=== PATIENT | male | born 1970 | race Two or more races ===

== ENCOUNTER 2016-06-09 02:50 | Emergency (ER) | payer MEDICAID ==
[2016-06-09] MEDS ORDERED: cefTRIAXone 500 MG Vial IV ONE (04:45)
[2016-06-09] MEDS ORDERED: Sodium Chloride 0.9% 1,000 ML IV SCH (04:45)
[2016-06-09] MEDS ORDERED: Azithromycin 250 MG Tab PO ONE (04:48)
[2016-06-09] MEDS ORDERED: cefTRIAXone 1 GM in Sodium Chloride 0.9% 50 ML IV ONE (05:13)
[2016-06-09] MEDS: Nitroglycerin 0.4 MG Tab.SL SL PRN ×3 (05:17→05:33)
[2016-06-09] MEDS ORDERED: Aspirin 81 MG Tab.Chew PO ONE (05:44)
[2016-06-09] MEDS ORDERED: Morphine 4 MG/ML Syringe IVPUSH ONE (05:55)
[2016-06-09] MEDS ORDERED: Nitroglycerin/D5W 25 MG/250 ML BOTTLE IV SCH (06:15)
[2016-06-09] MEDS ORDERED: Lactated Ringers 1,000 ML IV SCH (06:45)
--- NOTE | 2016-06-09 06:50 | EDM.PDOC ---
ED HISTORY OF PRESENT ILLNESS - General Chief Complaint: Chest Pain Stated Complaint: CHEST PAIN/LT ARM PAIN Time Seen by Provider: 06/09/16 03:45 Source: Reports: Patient History Limitations: Reports: No limitations - History of Present Illness INITIAL COMMENTS - FREE TEXT/NARRATIVE: History of present illness: [45-year-old male is presenting with a history of coronary disease, small vessel disease, diagnosed by angiogram approximately 2 years ago in [facility]. He is a type II diabetic that runs hemoglobin A1c's around 12. This is in spite of being on 300 units of insulin per day. He does have angina on a regular basis and uses sublingual nitroglycerin regularly. This morning he awoke at about 2:30 as a result of chest pain radiating into his left arm and jaw associated with subjective sensation of tachycardia and a little nausea but no diaphoresis or shortness of breath. Of late he has had a minimally productive cough but no fevers or chills. Chest pain is pressure-like in nature 4/10 and arm pain and jaw pain are 7/10. After 3 sublingual nitroglycerin the chest pain resolved but the arm pain and jaw pain persisted.] Review of systems: As per history of present illness and below otherwise all systems reviewed and negative. Past medical history: As per history of present illness and as reviewed below otherwise noncontributory. Surgical history: As per history of present illness and as reviewed below otherwise noncontributory. Social history: No reported history of drug or alcohol abuse. Family history: As per history of present illness and as reviewed below otherwise noncontributory. Physical exam: HEENT: Atraumatic, normocephalic, pupils reactive, negative for conjunctival pallor or scleral icterus, mucous membranes moist, throat clear, neck supple, nontender, trachea midline. Lungs: Clear to auscultation, breath sounds equal bilaterally, chest nontender. Heart: S1S2, regular, negative for clicks, rubs, or JVD. Abdomen: Soft, nondistended, nontender. Negative for masses or hepatosplenomegaly. Negative for costovertebral tenderness. Pelvis: Stable nontender. Genitourinary: Deferred. Rectal: Deferred. Extremities: Atraumatic, negative for cords or calf pain. Neurovascular unremarkable. Neuro: Awake, alert, oriented. Cranial nerves II through XII unremarkable. Cerebellum unremarkable. Motor and sensory unremarkable throughout. Exam nonfocal. Diagnostics: [Patient has had a CBC complete metabolic panel 2 sets of troponins 3 EKGs chest x-ray d-dimer and C. reactive protein. The troponins were both negative and his EKG is showing nonspecific ST and T wave findings. He has no ST elevation. His chest x-ray is clear] Therapeutics: [Patient has received 3 sublingual nitroglycerin but resolved his chest pain but his arm pain and jaw pain have persisted. He is now on a nitroglycerin drip. He has received 4 baby aspirin chew and swallow. He has remained relatively hemodynamically stable with blood pressure dropping to approximately 90 to after the 3 nitroglycerin but now has returned to over 100. He has also received IV morphine 4 mg] Impression: [Chest pain suspicious for coronary syndrome in this patient with known coronary disease] Plan: [We have made arrangements for him to be transferred to Dr Jonathan Adam, hospitalist accepting. He will go by ground ALS with nitro drip going. Direct admission. ] Definitive disposition and diagnosis as appropriate pending reevaluation and review of above. - Related Data Allergies/ADRs: Allergies Allergy/AdvReac Type Severity Reaction Status Date / Time levofloxacin [From Levaquin] Allergy Itching Verified 06/09/16 03:09 cetirizine AdvReac Intermediate Drowsiness Verified 06/09/16 03:09 latex AdvReac Rash Verified 06/09/16 03:09 tape Allergy Rash Uncoded 06/09/16 03:09 Home Meds: Home Meds Aspirin [Halfprin] 81 mg PO DAILY 11/12/12 [History] Insulin Aspart [Novolog Flexpen] 30 units SQ QID 11/12/12 [History] Isosorbide Mononitrate [Imdur] 30 mg PO DAILY 11/12/12 [History] Metoprolol Tartrate [Lopressor] 25 mg PO BID 11/12/12 [History] Simvastatin [Zocor] 20 mg PO BID 11/12/12 [History] Tamsulosin HCl [Flomax] 0.4 mg PO DAILY 11/12/12 [History] Pregabalin [Lyrica] 300 mg PO TID 12/11/12 [History] Albuterol [Proventil Neb Soln] 1 ampule INH Q6H PRN 02/12/13 [History] Fluticasone Propionate [Flonase] 2 spray DAR BID 02/12/13 [History] Fluticasone/Salmeterol [Advair 250-50] 1 puff INH BID 02/12/13 [History] Ipratropium [place] 1 ampule INH Q6H PRN 02/12/13 [History] Montelukast [Singulair] 10 mg PO DAILY 02/12/13 [History] Nitroglycerin [Nitrostat] 0.4 mg SL ASDIRECTED PRN 02/12/13 [History] Tiotropium [Spiriva HandiHaler] 1 puff INH DAILY 02/12/13 [History] Cyclobenzaprine [Flexeril] 20 mg PO TID 07/12/13 [History] Lisinopril [Prinivil] 5 mg PO DAILY 07/12/13 [History] Omeprazole [Prilosec] 20 mg PO DAILY 10/25/13 [History] Citalopram [Citalopram HBr] 20 mg PO DAILY #30 tablet 06/27/14 [Rx] Melatonin/Pyridoxine HCl (B6) [Melatonin 10 mg Tablet] 1 each PO BEDTIME PRN # 30 tab.mphase 06/27/14 [Rx] Dulaglutide [Trulicity] 1 dose SQ WEEKLY 10/31/15 [History] Insulin Glargine,Hum.Rec.Anlog [Toujeo Solostar] 135 units SQ BEDTIME 10/31/15 [ History] LORazepam [LORazepam] 1 mg PO TID 12/21/15 [History] Insulin Glargine,Hum.Rec.Anlog [Toujeo Solostar] 50 units SUBCNJ DAILY 04/03/16 [History] valACYclovir HCl [valACYclovir] 1,000 mg PO BID PRN 04/03/16 [History] Past Medical History HEENT History: Reports: Allergic rhinitis, Impaired vision, Other (see below) Other HEENT History: states unsteady on feet Cardiovascular History: Reports: Arrhythmia, CAD, High cholesterol, Hypertension , SOB on exertion Respiratory History: Reports: Asthma, COPD, Pneumonia, recurrent, SOB Gastrointestinal History: Reports: Colon polyp, GERD Genitourinary History: Reports: Prostate disorder Musculoskeletal History: Reports: Back pain, chronic Other Musculoskeletal History: back surgery Neurological History: Reports: Neuropathy, diabetic Psychiatric History: Reports: Anxiety Endocrine/Metabolic History: Reports: Diabetes, type II, IDDM Oncologic (Cancer) History: Reports: Lung, Other (see below) Other Oncologic History: mesophileoma - Infectious Disease History Infectious Disease History: Reports: Chicken pox - Past Surgical History Cardiovascular Surgical History: Reports: Other (see below) Other Cardiovascular Surgeries/Procedures: angiogram GI Surgical History: Reports: Colonoscopy, Hernia repair/other Other Musculoskeletal Surgeries/Procedures:: back surgery Social & Family History - Tobacco Use Smoking Status *Q: Never Smoker Years of Tobacco use: 25 Used Tobacco, but Quit: No Month Tobacco Last Used: JUNE Second Hand Smoke Exposure: No - Caffeine Use Caffeine Use: Reports: Coffee - Alcohol Use Days Per Week of Alcohol Use: 0 Number of Drinks Per Day: 0 Total Drinks Per Week: 0 - Recreational Drug Use Recreational Drug Use: No Drug Use in Last 12 Months: No Recreational Drug Type: Reports: Marijuana/Hashish Recreational Drug Use Frequency: Not Used In Over 1 Year - Living Situation & Occupation Living situation: Reports: , with family (lives with his and children.) ED ROS GENERAL - Review of Systems Review Of Systems: ROS reveals no pertinent complaints other than HPI. ED EXAM, GENERAL - Physical Exam Exam: See Below Course - Vital Signs Last Recorded V/S: Last Vital Signs Temp 36.1 C 06/09/16 02:59 Pulse 87 06/09/16 06:25 Resp 16 06/09/16 06:25 BP 114/73 06/09/16 06:25 Pulse Ox 98 06/09/16 06:25 - Orders/Labs/Meds Orders: Active Orders 24 hr Category Date Time Status EKG Documentation Completion [RC] ASDIRECTED Care 06/09/16 04:47 Ordered EKG Documentation Completion [RC] ASDIRECTED Care 06/09/16 05:31 Active EKG Documentation Completion [RC] ASDIRECTED Care 06/09/16 06:20 Ordered Chest 2V [CR] Stat Exams 06/09/16 03:22 Taken CULTURE RESPIRATORY + SMEAR [RM] Stat Lab 06/09/16 05:09 Uncollected UA W/MICROSCOPIC [URIN] Stat Lab 06/09/16 06:12 Uncollected Lactated Ringers @ 150 MLS/HR(1,000ml) Med 06/09/16 06:45 Ordered Lactated Ringers [Ringers, Lactated] 1,000 ml IV ASDIRECTED Nitroglycerin 25 MG in D5W @ 10 MCG/MIN(250ml) Premix Med 06/09/16 06:15 Ordered Nitroglycerin/D5W [Nitroglycerin 25 MG/D5W 250 ML] 250 ml IV TITRATE Sodium Chloride 0.9% @ 150 MLS/HR (1000ml) Med 06/09/16 04:45 Ordered Sodium Chloride 0.9% [Normal Saline] 1,000 ml IV ASDIRECTED EKG 12 Lead [EK] Routine Ther 06/09/16 03:00 Ordered EKG 12 Lead [EK] Stat Ther 06/09/16 04:47 Ordered EKG 12 Lead [EK] Stat Ther 06/09/16 06:20 Ordered Medication Orders Sodium Chloride (Normal Saline) 1,000 mls @ 150 mls/hr IV ASDIRECTED EMMA Last Admin: 06/09/16 04:56 Dose: 150 mls/hr Nitroglycerin/Dextrose (Nitroglycerin 25 Mg/D5w 250 Ml) 25 mg in 250 mls @ 6 mls/hr IV TITRATE EMMA; 10 MCG/MIN PRN Reason: Protocol Last Admin: 06/09/16 06:22 Dose: 10 mcg/min, 6 mls/hr Lactated Ringer's (Ringers, Lactated) 1,000 mls @ 150 mls/hr IV ASDIRECTED EMMA Labs: Laboratory Tests 06/09/16 06/09/16 06/09/16 Range/Units 03:27 03:27 04:43 WBC 11.3 H (4.5-11.0) K/uL RBC 5.36 (4.30-5.90) M/uL Hgb 15.6 H (12.0-15.0) g/dL Hct 44.3 (40.0-54.0) % MCV 83 (80-98) fL MCH 29 (27-31) pg MCHC 35 (32-36) % Plt Count 203 (150-400) K/uL Neut % (Auto) 57 (36-66) % Lymph % (Auto) 35 (24-44) % [place] % (Auto) 6 (2-6) % Eos % (Auto) 2 (2-4) % Baso % (Auto) 0 (0-1) % D-Dimer, Quantitative < 100 (0.0-400.0) ng/mL Sodium 137 L (140-148) mmol/L Potassium 3.6 (3.6-5.2) mmol/L Chloride 102 (100-108) mmol/L Carbon Dioxide 29 (21-32) mmol/L Anion Gap 9.6 (5.0-14.0) mmol/L BUN 18 D (7-18) mg/dL Creatinine 1.0 (0.8-1.3) mg/dL Est Cr Clr Drug Dosing 93.95 mL/min Estimated GFR (MDRD) > 60 (>60) Glucose 353 H (74-106) mg/dL Calcium 8.5 (8.5-10.1) mg/dL Total Bilirubin 0.4 (0.2-1.0) mg/dL AST 17 (15-37) U/L ALT 42 (12-78) U/L Alkaline Phosphatase 99 (46-116) U/L Troponin I < 0.017 (0.000-0.056) ng/mL C-Reactive Protein (0.0-0.3) mg/dL Total Protein 7.0 (6.4-8.2) g/dL Albumin 3.5 (3.4-5.0) g/dL Globulin 3.5 (2.3-3.5) g/dL Albumin/Globulin Ratio 1.0 L (1.2-2.2) 06/09/16 06/09/16 Range/Units 05:48 05:48 WBC (4.5-11.0) K/uL RBC (4.30-5.90) M/uL Hgb (12.0-15.0) g/dL Hct (40.0-54.0) % MCV (80-98) fL MCH (27-31) pg MCHC (32-36) % Plt Count (150-400) K/uL Neut % (Auto) (36-66) % Lymph % (Auto) (24-44) % [place] % (Auto) (2-6) % Eos % (Auto) (2-4) % Baso % (Auto) (0-1) % D-Dimer, Quantitative (0.0-400.0) ng/mL Sodium (140-148) mmol/L Potassium (3.6-5.2) mmol/L Chloride (100-108) mmol/L Carbon Dioxide (21-32) mmol/L Anion Gap (5.0-14.0) mmol/L BUN (7-18) mg/dL Creatinine (0.8-1.3) mg/dL Est Cr Clr Drug Dosing mL/min Estimated GFR (MDRD) (>60) Glucose (74-106) mg/dL Calcium (8.5-10.1) mg/dL Total Bilirubin (0.2-1.0) mg/dL AST (15-37) U/L ALT (12-78) U/L Alkaline Phosphatase (46-116) U/L Troponin I < 0.017 (0.000-0.056) ng/mL C-Reactive Protein 1.43 H (0.0-0.3) mg/dL Total Protein (6.4-8.2) g/dL Albumin (3.4-5.0) g/dL Globulin (2.3-3.5) g/dL Albumin/Globulin Ratio (1.2-2.2) Meds: Medications Generic Name Dose Route Start Last Admin Trade Name Freq PRN Reason Stop Dose Admin Sodium Chloride 1,000 mls @ 150 mls/hr 06/09/16 04:45 06/09/16 04:56 Normal Saline IV 150 mls/hr ASDIRECTED EMMA Administration Nitroglycerin/Dextrose 25 mg in 250 mls @ 6 mls/hr 06/09/16 06:15 06/09/16 06 :41 Nitroglycerin 25 Mg/D5w 250 Ml IV 15 mcg/min TITRATE EMMA 9 mls/hr Protocol Titration 10 MCG/MIN Lactated Ringer's 1,000 mls @ 150 mls/hr 06/09/16 06:45 Ringers, Lactated IV ASDIRECTED EMMA Discontinued Medications Generic Name Dose Route Start Last Admin Trade Name Freq PRN Reason Stop Dose Admin Aspirin 324 mg 06/09/16 05:44 06/09/16 05:48 Aspirin PO 06/09/16 05:45 324 mg ONETIME ONE Administration Azithromycin 500 mg 06/09/16 04:48 06/09/16 05:06 Zithromax PO 06/09/16 04:49 500 mg ONETIME ONE Administration Ceftriaxone Sodium 1,000 mg 06/09/16 04:45 06/09/16 05:23 Rocephin IV 06/09/16 04:46 Not Given ONETIME ONE Ceftriaxone Sodium 1 gm/ 50 mls @ 100 mls/hr 06/09/16 05:13 06/09/16 05:21 Sodium Chloride IV 06/09/16 05:42 100 mls/hr ONETIME ONE Administration Morphine Sulfate 4 mg 06/09/16 05:55 06/09/16 06:09 Morphine IVPUSH 06/09/16 05:56 4 mg ONETIME ONE Administration Nitroglycerin 0.4 mg 06/09/16 04:45 06/09/16 05:33 Nitrostat SL 06/09/16 04:56 0.4 mg Q5M PRN Administration Chest Pain Departure - Departure Time of Disposition: 06:50 Disposition: DC/Tfer to Acute Hospital 02 Reason for Transfer *Q: Other Condition: fair Clinical Impression: Acute coronary syndrome Forms: ED Department Discharge - My Orders Last 24 Hours: My Active Orders 06/09/16 03:00 EKG 12 Lead [EK] Routine 06/09/16 03:22 Chest 2V [CR] Stat 06/09/16 04:45 Sodium Chloride 0.9% @ 150 MLS/HR (1000ml) Sodium Chloride 0.9% [Normal Saline] 1,000 ml IV ASDIRECTED 06/09/16 04:47 EKG Documentation Completion [RC] ASDIRECTED EKG 12 Lead [EK] Stat 06/09/16 05:09 CULTURE RESPIRATORY + SMEAR [RM] Stat 06/09/16 05:31 EKG Documentation Completion [RC] ASDIRECTED 06/09/16 06:12 UA W/MICROSCOPIC [URIN] Stat 06/09/16 06:15 Nitroglycerin 25 MG in D5W @ 10 MCG/MIN(250ml) Premix Nitroglycerin/D5W [ Nitroglycerin 25 MG/D5W 250 ML] 250 ml IV TITRATE 06/09/16 06:20 EKG Documentation Completion [RC] ASDIRECTED EKG 12 Lead [EK] Stat 06/09/16 06:45 Lactated Ringers @ 150 MLS/HR(1,000ml) Lactated Ringers [Ringers, Lactated] 1, 000 ml IV ASDIRECTED - Assessment/Plan Last 24 Hours: My Active Orders 06/09/16 03:00 EKG 12 Lead [EK] Routine 06/09/16 03:22 Chest 2V [CR] Stat 06/09/16 04:45 Sodium Chloride 0.9% @ 150 MLS/HR (1000ml) Sodium Chloride 0.9% [Normal Saline] 1,000 ml IV ASDIRECTED 06/09/16 04:47 EKG Documentation Completion [RC] ASDIRECTED EKG 12 Lead [EK] Stat 06/09/16 05:09 CULTURE RESPIRATORY + SMEAR [RM] Stat 06/09/16 05:31 EKG Documentation Completion [RC] ASDIRECTED 06/09/16 06:12 UA W/MICROSCOPIC [URIN] Stat 06/09/16 06:15 Nitroglycerin 25 MG in D5W @ 10 MCG/MIN(250ml) Premix Nitroglycerin/D5W [ Nitroglycerin 25 MG/D5W 250 ML] 250 ml IV TITRATE 06/09/16 06:20 EKG Documentation Completion [RC] ASDIRECTED EKG 12 Lead [EK] Stat 06/09/16 06:45 Lactated Ringers @ 150 MLS/HR(1,000ml) Lactated Ringers [Ringers, Lactated] 1, 000 ml IV ASDIRECTED
--- NOTE | 2016-06-09 08:51 | CR ---
Chest 2V HISTORY: cough, chest pain COMPARISON: 01/03/2016 FINDINGS: Lungs appear clear and normally aerated. Cardiomediastinal silhouette is within normal limits. No va scular redistribution or pleural fluid can be seen. Bony structures and soft tissues are unremarkabl e. IMPRESSION: No acute chest abnormality or significant interval change is identified.
[2016-06-09 11:44] VITALS: BP 135/84
== END 2016-06-09 12:05 ==
LOC: JP.ED 02:50
DX: I24.9 Acute ischemic heart disease, unspecified (principal); I10 Essential (primary) hypertension; I25.10 Atherosclerotic heart disease of native coronary artery without angina pectoris; E78.00 Pure hypercholesterolemia, unspecified; J44.9 Chronic obstructive pulmonary disease, unspecified; K21.9 Gastro-esophageal reflux disease without esophagitis; J45.909 Unspecified asthma, uncomplicated; F41.9 Anxiety disorder, unspecified; E11.9 Type 2 diabetes mellitus without complications; Z85.118 Personal history of other malignant neoplasm of bronchus and lung; Z79.4 Long term (current) use of insulin; Z79.82 Long term (current) use of aspirin; Z79.899 Other long term (current) drug therapy; Z88.1 Allergy status to other antibiotic agents; Z91.040 Latex allergy status; Z91.048 Other nonmedicinal substance allergy status; Z98.890 Other specified postprocedural states
CPT/HCPCS: 36415; 71020; 80053; 84484; 85025; 85379; 86140; 93005; 96361; 96365; 96375; 96376; 99285; A9270; J0696; J2270; J7040; J7050; J7120

== ENCOUNTER 2016-12-26 17:25 | Emergency (ER) | payer MEDICAID ==
[2016-12-26 17:55] VITALS: BP 129/73
[2016-12-26] MEDS ORDERED: Sulfamethoxazole/Trimethoprim 800-160 MG Tab PO ONE (18:21)
--- NOTE | 2016-12-26 18:26 | EDM.PDOC ---
ED HPI GENERAL MEDICAL PROBLEM - General Chief Complaint: General Stated Complaint: DIZZY Time Seen by Provider: 12/26/16 18:15 Source of Information: Reports: Patient History Limitations: Reports: No Limitations - History of Present Illness INITIAL COMMENTS - FREE TEXT/NARRATIVE: 46-year-old male who has been feeling dizzy and generalized malaise for the past 2 days, somewhat elevated glucose levels and he's been having drainage from his right groin. There is a small painful area in the groin, he has a history of a hernia in the area. No shortness of breath, no nausea or vomiting. He just doesn't feel well. No fevers or chills. Onset: Gradual (Over the past 48 hours) Location: Reports: Lower Extremity, Right Severity: Mild Associated Symptoms: Reports: Malaise, Other (Lightheaded, dizziness, having a small amount of trouble concentrating). Denies: Confusion, Fever/Chills Right Lower Pelvic Pain Score (Numeric/FACES): 8 - Related Data Allergies Allergy/AdvReac Type Severity Reaction Status Date / Time levofloxacin [From Levaquin] Allergy Itching Verified 06/09/16 03:09 cetirizine AdvReac Intermediate Drowsiness Verified 06/09/16 03:09 latex AdvReac Rash Verified 06/09/16 03:09 tape Allergy Rash Uncoded 06/09/16 03:09 Home Meds: Home Meds Aspirin [Halfprin] 81 mg PO DAILY 11/12/12 [History] Insulin Aspart [Novolog Flexpen] 30 units SQ QID 11/12/12 [History] Isosorbide Mononitrate [Imdur] 30 mg PO DAILY 11/12/12 [History] Metoprolol Tartrate [Lopressor] 25 mg PO BID 11/12/12 [History] Simvastatin [Zocor] 20 mg PO BID 11/12/12 [History] Tamsulosin HCl [Flomax] 0.4 mg PO DAILY 11/12/12 [History] Pregabalin [Lyrica] 300 mg PO TID 12/11/12 [History] Albuterol [Proventil Neb Soln] 1 ampule INH Q6H PRN 02/12/13 [History] Fluticasone Propionate [Flonase] 2 spray DAR BID 02/12/13 [History] Fluticasone/Salmeterol [Advair 250-50] 1 puff INH BID 02/12/13 [History] Ipratropium [place] 1 ampule INH Q6H PRN 02/12/13 [History] Montelukast [Singulair] 10 mg PO DAILY 02/12/13 [History] Nitroglycerin [Nitrostat] 0.4 mg SL ASDIRECTED PRN 02/12/13 [History] Tiotropium [Spiriva HandiHaler] 1 puff INH DAILY 02/12/13 [History] Cyclobenzaprine [Flexeril] 20 mg PO TID 07/12/13 [History] Lisinopril [Prinivil] 5 mg PO DAILY 07/12/13 [History] Omeprazole [Prilosec] 20 mg PO DAILY 10/25/13 [History] Citalopram [Citalopram HBr] 20 mg PO DAILY #30 tablet 06/27/14 [Rx] Melatonin/Pyridoxine HCl (B6) [Melatonin 10 mg Tablet] 1 each PO BEDTIME PRN # 30 tab.mphase 06/27/14 [Rx] Dulaglutide [Trulicity] 1 dose SQ WEEKLY 10/31/15 [History] Insulin Glargine,Hum.Rec.Anlog [Toujeo Solostar] 135 units SQ BEDTIME 10/31/15 [ History] LORazepam [LORazepam] 1 mg PO TID 12/21/15 [History] Insulin Glargine,Hum.Rec.Anlog [Toujeo Solostar] 50 units SUBCNJ DAILY 04/03/16 [History] valACYclovir HCl [valACYclovir] 1,000 mg PO BID PRN 04/03/16 [History] Past Medical History HEENT History: Reports: Allergic Rhinitis, Impaired Vision, Other (See Below) Other HEENT History: states unsteady on feet Cardiovascular History: Reports: Arrhythmia, CAD, High Cholesterol, Hypertension , SOB on Exertion Respiratory History: Reports: Asthma, COPD, Pneumonia, Recurrent, SOB Gastrointestinal History: Reports: Colon Polyp, GERD Genitourinary History: Reports: Prostate Disorder Musculoskeletal History: Reports: Back Pain, Chronic Other Musculoskeletal History: back surgery Neurological History: Reports: Neuropathy, Diabetic Psychiatric History: Reports: Anxiety Endocrine/Metabolic History: Reports: Diabetes, Type II, IDDM Oncologic (Cancer) History: Reports: Lung, Other (See Below) Other Oncologic History: mesophileoma - Infectious Disease History Infectious Disease History: Reports: Chicken Pox - Past Surgical History Cardiovascular Surgical History: Reports: Other (See Below) GI Surgical History: Reports: Colonoscopy, Hernia Repair/Other Social & Family History - Tobacco Use Smoking Status *Q: Current Some Day Smoker Years of Tobacco use: 20 Packs/Tins Daily: 0.5 Used Tobacco, but Quit: No Month Tobacco Last Used: JUNE Second Hand Smoke Exposure: No - Caffeine Use Caffeine Use: Reports: None - Alcohol Use Days Per Week of Alcohol Use: 0 Number of Drinks Per Day: 0 Total Drinks Per Week: 0 - Recreational Drug Use Recreational Drug Use: No Drug Use in Last 12 Months: No Recreational Drug Type: Reports: Marijuana/Hashish Recreational Drug Use Frequency: Not Used In Over 1 Year - Living Situation & Occupation Living situation: Reports: , with Family ED ROS GENERAL - Review of Systems Review Of Systems: See Below Constitutional: Reports: Malaise. Denies: Fever, Chills HEENT: Reports: No Symptoms Respiratory: Denies: Shortness of Breath, Cough Cardiovascular: Denies: Chest Pain GI/Abdominal: Denies: Abdominal Pain, Nausea, Vomiting : Denies: Dysuria Skin: Reports: Other (Swelling, redness and tenderness in the right groin with drainage) Neurological: Reports: Dizziness Psychiatric: Reports: No Symptoms ED EXAM, GENERAL - Physical Exam Exam: See Below Exam Limited By: No Limitations General Appearance: Alert, No Apparent Distress Respiratory/Chest: No Respiratory Distress, Lungs Clear Cardiovascular: Regular Rate, Rhythm. No: Tachycardia GI/Abdominal: Non-Tender Extremities: Other (He is a small slightly fluctuant subcutaneous infection, erythematous and somewhat tender to palpation approximately 1-2 cm across with slightly purulent drainage) Psychiatric: Normal Affect, Normal Mood Course - Vital Signs Last Recorded V/S: Last Vital Signs Temp 97.9 F 12/26/16 17:55 Pulse 95 12/26/16 17:55 Resp 18 12/26/16 17:55 BP 129/73 12/26/16 17:55 Pulse Ox 95 12/26/16 17:55 - Orders/Labs/Meds Orders: Active Orders 24 hr Category Date Time Status CULTURE WOUND + SMEAR [RM] Stat Lab 12/26/16 18:25 Results Labs: Laboratory Tests 12/26/16 12/26/16 Range/Units 18:32 18:32 WBC 5.7 (4.5-11.0) K/uL RBC 5.23 (4.30-5.90) M/uL Hgb 15.6 H (12.0-15.0) g/dL Hct 44.6 (40.0-54.0) % MCV 85 (80-98) fL MCH 30 (27-31) pg MCHC 35 (32-36) % Plt Count 161 (150-400) K/uL Neut % (Auto) 59 (36-66) % Lymph % (Auto) 28 (24-44) % Gregory % (Auto) 11 H (2-6) % Eos % (Auto) 3 (2-4) % Baso % (Auto) 0 (0-1) % Sodium 135 L (140-148) mmol/L Potassium 4.1 (3.6-5.2) mmol/L Chloride 102 (100-108) mmol/L Carbon Dioxide 26 (21-32) mmol/L Anion Gap 11.1 (5.0-14.0) mmol/L BUN 16 (7-18) mg/dL Creatinine 1.0 (0.8-1.3) mg/dL Est Cr Clr Drug Dosing 93.28 mL/min Estimated GFR (MDRD) > 60 (>60) Glucose 344 H (74-106) mg/dL Calcium 8.6 (8.5-10.1) mg/dL Meds: Medications Discontinued Medications Generic Name Dose Route Start Last Admin Trade Name Stephenq PRN Reason Stop Dose Admin Trimethoprim/Sulfamethoxazole 1 tab 12/26/16 18:21 12/26/16 18:29 Septra Ds PO 12/26/16 18:22 1 tab ONETIME ONE Administration - Re-Assessments/Exams Free Text/Narrative Re-Assessment/Exam: 12/26/16 18:26 The inflamed area was sterilized with alcohol, and applying a small amount of pressure some discharge was expelled and cultured. He was very concerned about his blood, a CBC and BMP were obtained. He was given one oral dose of Bactrim DS. 12/26/16 19:01 Patient's glucose is 344. The other labs were reassuring, white count was normal. He'll be continued on Bactrim DS twice a day for at least the next 7 days and encouraged to use warm compresses to the area. He can return if worsening and we will contact him with culture results. Departure - Departure Time of Disposition: 19:12 Disposition: Home, Self-Care 01 Condition: Good Clinical Impression: Cutaneous abscess of groin - Discharge Information Instructions: Abscess, [id number] Referrals: PCP,None [Primary Care Provider] - Forms: ED Department Discharge Care Plan Goals: Take antibiotic twice daily as prescribed for at least 7 days, warm moist compresses to the area should help. Return anytime if worsening or consider recheck in 3-4 days if not improving satisfactorily. - My Orders Last 24 Hours: My Active Orders 12/26/16 18:25 CULTURE WOUND + SMEAR [RM] Stat - Assessment/Plan Last 24 Hours: My Active Orders 12/26/16 18:25 CULTURE WOUND + SMEAR [RM] Stat
== END 2016-12-26 19:13 | disposition home or self-care (01) ==
LOC: JP.ED 17:25
DX: L02.214 Cutaneous abscess of groin (principal); F17.210 Nicotine dependence, cigarettes, uncomplicated; E11.9 Type 2 diabetes mellitus without complications; I10 Essential (primary) hypertension; J44.9 Chronic obstructive pulmonary disease, unspecified; Z79.4 Long term (current) use of insulin; Z79.899 Other long term (current) drug therapy; Z79.82 Long term (current) use of aspirin; Z88.1 Allergy status to other antibiotic agents; Z91.040 Latex allergy status; Z91.09 Other allergy status, other than to drugs and biological substances; Z88.8 Allergy status to other drugs, medicaments and biological substances
CPT/HCPCS: 36415; 80048; 85025; 87070; 87077; 87205; 99284; A9270

== ENCOUNTER 2017-02-28 13:23 | Emergency (ER) | payer MEDICAID ==
[2017-02-28] MEDS ORDERED: Lactated Ringers 1,000 ML IV ONE (14:53)
[2017-02-28] MEDS ORDERED: Ketorolac 30 MG/ML SDV IVPUSH ONE (14:54)
[2017-02-28] MEDS ORDERED: Ondansetron 4 MG Tab.DIS PO ONE (14:55)
--- NOTE | 2017-02-28 15:02 | EDM.PDOC ---
ED HPI GENERAL MEDICAL PROBLEM - General Chief Complaint: General Stated Complaint: BOTH SHOULDERS ARE PAINFUL Time Seen by Provider: 02/28/17 14:45 Source of Information: Reports: Patient, Old Records, RN History Limitations: Reports: No Limitations - History of Present Illness INITIAL COMMENTS - FREE TEXT/NARRATIVE: 46 yo male states he fell down some icy stairs about 3 days ago and now has worse pain today than yesterday. Has not been to the clinic since the fall. Complains of chest pain, bilateral shoulder pain, low back pain, and nausea/ vomiting. No fever. Has a hx of CAD. Has a hx of low back surgery. Onset: Sudden Onset Date: 02/25/17 Duration: Day(s):, Getting Worse Location: Reports: Chest, Back, Upper Extremity, Left, Upper Extremity, Right Quality: Reports: Ache Severity: Moderate Improves with: Reports: Rest Worsens with: Reports: Movement Context: Reports: Other (multiple chronic medical conditions.) Associated Symptoms: Reports: Chest Pain, Nausea/Vomiting. 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: Other (see below) (none) Lower Back Pain Score (Numeric/FACES): 8 - Related Data Allergies Allergy/AdvReac Type Severity Reaction Status Date / Time levofloxacin [From Levaquin] Allergy Itching Verified 06/09/16 03:09 cetirizine AdvReac Intermediate Drowsiness Verified 06/09/16 03:09 latex AdvReac Rash Verified 06/09/16 03:09 tape Allergy Rash Uncoded 06/09/16 03:09 Home Meds: Home Meds Aspirin [Halfprin] 81 mg PO DAILY 11/12/12 [History] Insulin Aspart [Novolog Flexpen] 30 units SQ QID 11/12/12 [History] Isosorbide Mononitrate [Imdur] 30 mg PO DAILY 11/12/12 [History] Metoprolol Tartrate [Lopressor] 25 mg PO BID 11/12/12 [History] Simvastatin [Zocor] 20 mg PO BID 11/12/12 [History] Tamsulosin HCl [Flomax] 0.4 mg PO DAILY 11/12/12 [History] Pregabalin [Lyrica] 300 mg PO TID 12/11/12 [History] Albuterol [Proventil Neb Soln] 1 ampule INH Q6H PRN 02/12/13 [History] Fluticasone Propionate [Flonase] 2 spray DAR BID 02/12/13 [History] Fluticasone/Salmeterol [Advair 250-50] 1 puff INH BID 02/12/13 [History] Ipratropium [place] 1 ampule INH Q6H PRN 02/12/13 [History] Montelukast [Singulair] 10 mg PO DAILY 02/12/13 [History] Nitroglycerin [Nitrostat] 0.4 mg SL ASDIRECTED PRN 02/12/13 [History] Tiotropium [Spiriva HandiHaler] 1 puff INH DAILY 02/12/13 [History] Cyclobenzaprine [Flexeril] 20 mg PO TID 07/12/13 [History] Lisinopril [Prinivil] 5 mg PO DAILY 07/12/13 [History] Omeprazole [Prilosec] 20 mg PO DAILY 10/25/13 [History] Citalopram [Citalopram HBr] 20 mg PO DAILY #30 tablet 06/27/14 [Rx] Melatonin/Pyridoxine HCl (B6) [Melatonin 10 mg Tablet] 1 each PO BEDTIME PRN # 30 tab.mphase 06/27/14 [Rx] Dulaglutide [Trulicity] 1 dose SQ WEEKLY 10/31/15 [History] Insulin Glargine,Hum.Rec.Anlog [Toujeo Solostar] 135 units SQ BEDTIME 10/31/15 [ History] LORazepam [LORazepam] 1 mg PO TID 12/21/15 [History] Insulin Glargine,Hum.Rec.Anlog [Toujeo Solostar] 50 units SUBCNJ DAILY 04/03/16 [History] valACYclovir HCl [valACYclovir] 1,000 mg PO BID PRN 04/03/16 [History] Ondansetron [Zofran ODT] 4 mg PO Q6H PRN #7 tab.dis 02/28/17 [Rx] Past Medical History HEENT History: Reports: Allergic Rhinitis, Impaired Vision, Other (See Below) Other HEENT History: states unsteady on feet Cardiovascular History: Reports: Arrhythmia, CAD, High Cholesterol, Hypertension , SOB on Exertion Respiratory History: Reports: Asthma, COPD, Pneumonia, Recurrent, SOB Gastrointestinal History: Reports: Colon Polyp, GERD Genitourinary History: Reports: Prostate Disorder Musculoskeletal History: Reports: Back Pain, Chronic Other Musculoskeletal History: back surgery Neurological History: Reports: Neuropathy, Diabetic Psychiatric History: Reports: Anxiety Endocrine/Metabolic History: Reports: Diabetes, Type II, IDDM Oncologic (Cancer) History: Reports: Lung, Other (See Below) Other Oncologic History: mesophileoma - Infectious Disease History Infectious Disease History: Reports: Chicken Pox - Past Surgical History Cardiovascular Surgical History: Reports: Other (See Below) GI Surgical History: Reports: Colonoscopy, Hernia Repair/Other Social & Family History - Tobacco Use Smoking Status *Q: Current Every Day Smoker Years of Tobacco use: 20 Packs/Tins Daily: 0.5 Used Tobacco, but Quit: No Month Tobacco Last Used: JUNE Second Hand Smoke Exposure: No - Caffeine Use Caffeine Use: Reports: None - Alcohol Use Days Per Week of Alcohol Use: 0 Number of Drinks Per Day: 0 Total Drinks Per Week: 0 - Recreational Drug Use Recreational Drug Use: No Drug Use in Last 12 Months: No Recreational Drug Type: Reports: Marijuana/Hashish Recreational Drug Use Frequency: Not Used In Over 1 Year - Living Situation & Occupation Living situation: Reports: , with Family ED ROS GENERAL - Review of Systems Review Of Systems: See Below Constitutional: Reports: No Symptoms HEENT: Reports: No Symptoms Respiratory: Reports: No Symptoms Cardiovascular: Reports: No Symptoms Endocrine: Reports: No Symptoms GI/Abdominal: Reports: No Symptoms : Reports: No Symptoms Musculoskeletal: Reports: Shoulder Pain (Bilateral A/C tenderness without deformity on palpation or visualization. ), Back Pain (No spasms. No redness or bruising. ) Skin: Reports: No Symptoms Neurological: Reports: No Symptoms Psychiatric: Reports: No Symptoms ED EXAM, GENERAL - Physical Exam Exam: See Below Exam Limited By: No Limitations General Appearance: Alert, WD/WN, No Apparent Distress Eye Exam: Bilateral Eye: Normal Inspection Ears: Normal External Exam, Normal Canal, Hearing Grossly Normal, Normal TMs Ear Exam: Bilateral Ear: Auricle Normal, Canal Normal, TM normal Nose: Normal Inspection, Normal Mucosa, No Blood Throat/Mouth: Normal Inspection, Normal Lips, Normal Oropharynx, Normal Voice, No Airway Compromise Head: Atraumatic, Normocephalic Neck: Normal Inspection, Supple, Non-Tender Respiratory/Chest: No Respiratory Distress, Lungs Clear, Normal Breath Sounds, No Accessory Muscle Use Cardiovascular: Regular Rate, Rhythm, No Edema, Tachycardia (mild tachycardia) GI/Abdominal: Normal Bowel Sounds, Soft, Non-Tender, No Distention Back Exam: Normal Inspection, Other (mild diffuse low back pain, old surgical scar lumbar region. ). No: CVA Tenderness (R), CVA Tenderness (L) Extremities: Normal Inspection, Non-Tender, No Pedal Edema, Limited Range of Motion (of shoulders only) Neurological: Alert, Oriented, CN II-XII Intact, Normal Cognition, No Motor/ Sensory Deficits Psychiatric: Normal Affect, Normal Mood Skin Exam: Warm, Dry, Intact, Normal Color, No Rash Lymphatic: No Adenopathy Course - Vital Signs Last Recorded V/S: Last Vital Signs Temp 37.1 C 02/28/17 14:30 Pulse 94 02/28/17 15:34 Resp 16 02/28/17 15:34 BP 126/87 02/28/17 15:34 Pulse Ox 98 02/28/17 15:34 - Orders/Labs/Meds Orders: Active Orders 24 hr Category Date Time Status Lumbar Spine 2 or 3V [CR] Stat Exams 02/28/17 14:55 Taken Shoulder Comp Bi [CR] Stat Exams 02/28/17 14:56 Taken Lactated Ringers [Ringers, Lactated] 1,000 ml Med 02/28/17 14:53 Active IV BOLUS Medication Orders Lactated Ringer's (Ringers, Lactated) 1,000 mls @ 1,000 mls/hr IV BOLUS ONE Stop: 02/28/17 15:52 Last Admin: 02/28/17 15:28 Dose: 1,000 mls/hr Labs: Laboratory Tests 02/28/17 02/28/17 02/28/17 Range/Units 14:55 14:55 15:15 WBC 10.1 (4.5-11.0) K/uL RBC 5.53 (4.30-5.90) M/uL Hgb 16.2 H (12.0-15.0) g/dL Hct 46.8 (40.0-54.0) % MCV 85 (80-98) fL MCH 29 (27-31) pg MCHC 35 (32-36) % Plt Count 168 (150-400) K/uL Sodium 135 L (140-148) mmol/L Potassium 3.6 (3.6-5.2) mmol/L Chloride 100 (100-108) mmol/L Carbon Dioxide 28 (21-32) mmol/L Anion Gap 10.6 (5.0-14.0) mmol/L BUN 16 (7-18) mg/dL Creatinine 0.9 (0.8-1.3) mg/dL Est Cr Clr Drug Dosing 103.65 mL/min Estimated GFR (MDRD) > 60 (>60) Glucose 133 H (74-106) mg/dL Calcium 8.3 L (8.5-10.1) mg/dL Troponin I < 0.017 (0.000-0.056) ng/mL Urine Color [place] Urine Appearance Clear Urine pH 6.0 (4.5-8.0) Ur Specific [place] 1.015 (1.008-1.030) Urine Protein Trace (NEGATIVE) mg/dL Urine Glucose (UA) Normal (NEGATIVE) mg/dL Urine Ketones Negative (NEGATIVE) mg/dL Urine Occult Blood Negative (NEGATIVE) Urine Nitrite Negative (NEGAITVE) Urine Bilirubin Small (NEGATIVE) Urine Urobilinogen 1 (NORMAL) mg/dL Ur Leukocyte Esterase Negative (NEGATIVE) Urine RBC 0-5 (0-5) Urine WBC 0-5 (0-5) Ur Epithelial Cells Rare Amorphous Sediment Few Urine Bacteria Rare Urine Mucus Few Meds: Medications Generic Name Dose Route Start Last Admin Trade Name Freq PRN Reason Stop Dose Admin Lactated Ringer's 1,000 mls @ 1,000 mls/hr 02/28/17 14:53 02/28/17 15:28 Ringers, Lactated IV 02/28/17 15:52 1,000 mls/hr BOLUS ONE Administration Discontinued Medications Generic Name Dose Route Start Last Admin Trade Name Freq PRN Reason Stop Dose Admin Ketorolac Tromethamine 30 mg 02/28/17 14:54 02/28/17 15:29 Toradol IVPUSH 02/28/17 14:55 30 mg ONETIME ONE Administration Ondansetron HCl 4 mg 02/28/17 14:55 02/28/17 15:32 Zofran Odt PO 02/28/17 14:56 4 mg ONETIME ONE Administration - Radiology Interpretation Free Text/Narrative:: Lumbar spine [id number] L shoulder X-ray-neg R shoulder X-ray-neg Departure - Departure Time of Disposition: 16:15 Disposition: Home, Self-Care 01 Condition: Good Clinical Impression: Multiple contusions, Nausea Acromioclavicular sprain Qualifiers: Encounter type: initial encounter Laterality: right Qualified Code(s): S43.51XA - Sprain of right acromioclavicular joint, initial encounter - Discharge Information Prescriptions: Ondansetron [Zofran ODT] 4 mg PO Q6H PRN #7 tab.dis PRN Reason: Nausea Referrals: PCP,None [Primary Care Provider] - Forms: ED Department Discharge Additional Instructions: Wear sling for support as needed. Take Zofran as needed for nausea control. Use acetaminophen as needed for pain relief. Recheck with your provider early next week for recheck. - My Orders Last 24 Hours: My Active Orders 02/28/17 14:53 Lactated Ringers [Ringers, Lactated] 1,000 ml IV BOLUS 02/28/17 14:55 Lumbar Spine 2 or 3V [CR] Stat 02/28/17 14:56 Shoulder Comp Bi [CR] Stat - Assessment/Plan Last 24 Hours: My Active Orders 02/28/17 14:53 Lactated Ringers [Ringers, Lactated] 1,000 ml IV BOLUS 02/28/17 14:55 Lumbar Spine 2 or 3V [CR] Stat 02/28/17 14:56 Shoulder Comp Bi [CR] Stat
[2017-02-28 15:35] VITALS: BP 126/87
--- NOTE | 2017-03-01 08:37 | CR ---
Shoulder Comp Bi HISTORY: pain after a fall FINDINGS: No acute fracture or dislocation is identified. Bony architecture and joint spaces are preserved. S oft tissues are unremarkable. IMPRESSION: No acute left shoulder abnormality identified.
--- NOTE | 2017-03-01 08:37 | CR ---
Lumbar Spine 2 or 3V HISTORY: low back pain after a fall FINDINGS: Lumbar vertebral bodies appear intact and in satisfactory alignment. No compression fracture or disc space narrowing is seen. Intervertebral body fusion spacer is present at L5-S1. L5 demonstrates unro ofing procedure changes posteriorly with resection of the spinous process and lamina. There is metal hanging supervisor ior jose and pedicle screw fusion bilaterally at L5-S1. Position and alignment are satisfactory. Spino us processes, posterior elements, and pedicles appear otherwise intact and in satisfactory alignment. Perivertebral soft tissues appear normal. IMPRESSION: No acute lumbar spine abnormality identified. Old unroofing procedure changes with anterior posterior fusion L5-S1.
== END 2017-02-28 16:37 | disposition home or self-care (01) ==
LOC: JP.ED 13:23
DX: S43.51XA Sprain of right acromioclavicular joint, initial encounter (principal); E78.00 Pure hypercholesterolemia, unspecified; I10 Essential (primary) hypertension; Z79.4 Long term (current) use of insulin; E11.40 Type 2 diabetes mellitus with diabetic neuropathy, unspecified; F17.210 Nicotine dependence, cigarettes, uncomplicated; Z91.040 Latex allergy status; Z88.8 Allergy status to other drugs, medicaments and biological substances; Z79.82 Long term (current) use of aspirin; Z79.899 Other long term (current) drug therapy; T14.8XXA Other injury of unspecified body region, initial encounter; W10.9XXA Fall (on) (from) unspecified stairs and steps, initial encounter
CPT/HCPCS: 36415; 72100; 73030; 80048; 81001; 84484; 85027; 96361; 96374; 99284; A9270; J1885; J7120

== ENCOUNTER 2017-05-25 21:33 | Emergency (ER) | payer MEDICAID ==
[2017-05-25] MEDS ORDERED: Lactated Ringers 1,000 ML IV ONE (22:21)
[2017-05-25] MEDS ORDERED: Albuterol/Ipratropium 3.0-0.5 MG/3 ML Neb Soln NEB ONE (22:21)
[2017-05-25] MEDS ORDERED: Ketorolac 30 MG/ML SDV IVPUSH ONE (22:22)
[2017-05-25 22:29] VITALS: BP 130/93
--- NOTE | 2017-05-25 22:29 | EDM.PDOC ---
ED HPI GENERAL MEDICAL PROBLEM - General Chief Complaint: Respiratory Problem Stated Complaint: SOB LEGS HURT Time Seen by Provider: 05/25/17 22:15 Source of Information: Reports: Patient, Old Records, RN History Limitations: Reports: No Limitations - History of Present Illness INITIAL COMMENTS - FREE TEXT/NARRATIVE: 46 yo male here with bilateral painful calves and SOB. Has asthma hx and has not been using any of his asthma meds. No fever. Is unaware of his heart beating fast. Denies recent fever, vomiting, diarrhea, or bloody/black stools. No chest pain. Is diabetic. Sx's for a few days getting worse. Has not been to the clinic. Has a pHx of mesothelioma and recurrent pneumonia. Onset: Gradual Onset Date: 05/22/17 Duration: Day(s):, Getting Worse Location: Reports: Chest, Lower Extremity, Left, Lower Extremity, Right Quality: Reports: Ache (both calves) Severity: Moderate Improves with: Reports: Rest Worsens with: Reports: Movement Context: Reports: Other (Recent travel) Associated Symptoms: Reports: Shortness of Breath, Other (bilat calf pain). 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) (none) Bilateral Calves Pain Score (Numeric/FACES): 10 Lungs Pain Score (Numeric/FACES): 8 - Related Data Allergies Allergy/AdvReac Type Severity Reaction Status Date / Time levofloxacin [From Levaquin] Allergy Itching Verified 05/25/17 21:53 cetirizine AdvReac Intermediate Drowsiness Verified 05/25/17 21:53 latex AdvReac Rash Verified 05/25/17 21:53 tape Allergy Rash Uncoded 05/25/17 21:53 Home Meds: Home Meds Aspirin [Halfprin] 81 mg PO DAILY 11/12/12 [History] Insulin Aspart [Novolog Flexpen] 30 units SQ QID 11/12/12 [History] Simvastatin [Zocor] 20 mg PO BID 11/12/12 [History] Tamsulosin HCl [Flomax] 0.4 mg PO DAILY 11/12/12 [History] Pregabalin [Lyrica] 300 mg PO TID 12/11/12 [History] Albuterol [Proventil Neb Soln] 1 ampule INH Q6H PRN 02/12/13 [History] Fluticasone Propionate [Flonase] 2 spray DAR BID 02/12/13 [History] Fluticasone/Salmeterol [Advair 250-50] 1 puff INH BID 02/12/13 [History] Ipratropium [place] 1 ampule INH Q6H PRN 02/12/13 [History] Montelukast [Singulair] 10 mg PO DAILY 02/12/13 [History] Nitroglycerin [Nitrostat] 0.4 mg SL ASDIRECTED PRN 02/12/13 [History] Tiotropium [Spiriva HandiHaler] 1 puff INH DAILY 02/12/13 [History] Cyclobenzaprine [Flexeril] 20 mg PO TID 07/12/13 [History] Omeprazole [Prilosec] 20 mg PO DAILY 10/25/13 [History] Citalopram [Citalopram HBr] 20 mg PO DAILY #30 tablet 06/27/14 [Rx] Melatonin/Pyridoxine HCl (B6) [Melatonin 10 mg Tablet] 1 each PO BEDTIME PRN # 30 tab.mphase 06/27/14 [Rx] Dulaglutide [Trulicity] 1 dose SQ WEEKLY 10/31/15 [History] Insulin Glargine,Hum.Rec.Anlog [Toujeo Solostar] 135 units SQ BEDTIME 10/31/15 [ History] LORazepam [LORazepam] 1 mg PO TID 12/21/15 [History] Insulin Glargine,Hum.Rec.Anlog [Toujeo Solostar] 50 units SUBCNJ DAILY 04/03/16 [History] valACYclovir HCl [valACYclovir] 1,000 mg PO BID PRN 04/03/16 [History] Ondansetron [Zofran ODT] 4 mg PO Q6H PRN #7 tab.dis 02/28/17 [Rx] metFORMIN [Glucophage] 850 mg PO BIDMEALS 05/25/17 [History] Past Medical History HEENT History: Reports: Allergic Rhinitis, Impaired Vision, Other (See Below) Other HEENT History: states unsteady on feet Cardiovascular History: Reports: Arrhythmia, CAD, High Cholesterol, Hypertension , SOB on Exertion Respiratory History: Reports: Asthma, COPD, Pneumonia, Recurrent, SOB Gastrointestinal History: Reports: Colon Polyp, GERD Genitourinary History: Reports: Prostate Disorder Musculoskeletal History: Reports: Back Pain, Chronic Other Musculoskeletal History: back surgery Neurological History: Reports: Neuropathy, Diabetic Psychiatric History: Reports: Anxiety Endocrine/Metabolic History: Reports: Diabetes, Type II, IDDM Oncologic (Cancer) History: Reports: Lung, Other (See Below) Other Oncologic History: mesophileoma - Infectious Disease History Infectious Disease History: Reports: Chicken Pox - Past Surgical History Cardiovascular Surgical History: Reports: Other (See Below) GI Surgical History: Reports: Colonoscopy, Hernia Repair/Other Social & Family History - Tobacco Use Smoking Status *Q: Current Every Day Smoker Years of Tobacco use: 20 Packs/Tins Daily: 0.5 Used Tobacco, but Quit: No Month/Year Tobacco Last Used: JUNE Second Hand Smoke Exposure: No - Caffeine Use Caffeine Use: Reports: Coffee - Alcohol Use Days Per Week of Alcohol Use: 0 Number of Drinks Per Day: 0 Total Drinks Per Week: 0 - Recreational Drug Use Recreational Drug Use: No Drug Use in Last 12 Months: No Recreational Drug Type: Reports: Marijuana/Hashish Recreational Drug Use Frequency: Not Used In Over 1 Year - Living Situation & Occupation Living situation: Reports: , with Family ED ROS GENERAL - Review of Systems Review Of Systems: See Below Constitutional: Reports: No Symptoms. Denies: Fever, Chills HEENT: Reports: No Symptoms Respiratory: Reports: Shortness of Breath. Denies: Wheezing (unaware), Pleuritic Chest Pain, Cough, Sputum, Hemoptysis Cardiovascular: Reports: No Symptoms Endocrine: Reports: No Symptoms GI/Abdominal: Reports: No Symptoms : Reports: No Symptoms Musculoskeletal: Reports: Other (Both calves tender) Skin: Reports: No Symptoms Neurological: Reports: No Symptoms Psychiatric: Reports: No Symptoms ED EXAM, GENERAL - Physical Exam Exam: See Below Exam Limited By: No Limitations General Appearance: Alert, WD/WN, No Apparent Distress Eye Exam: Bilateral Eye: Normal Inspection Ears: Normal External Exam, Normal Canal, Hearing Grossly Normal, Normal TMs Ear Exam: Bilateral Ear: Auricle Normal, Canal Normal, TM normal Nose: Normal Inspection, Normal Mucosa, No Blood Throat/Mouth: Normal Inspection, Normal Lips, Normal Oropharynx, Normal Voice, No Airway Compromise Head: Atraumatic, Normocephalic Neck: Normal Inspection, Supple, Non-Tender Respiratory/Chest: No Respiratory Distress, No Accessory Muscle Use, Wheezing Cardiovascular: Tachycardia GI/Abdominal: Normal Bowel Sounds, Soft, Non-Tender, No Distention Back Exam: Normal Inspection. No: CVA Tenderness (R), CVA Tenderness (L) Extremities: Normal Inspection, Normal Range of Motion, No Pedal Edema, Other ( Both calves tender, but otherwise appear and feel completely normal. ). No: Redness Neurological: Alert, Oriented, CN II-XII Intact, Normal Cognition, No Motor/ Sensory Deficits Psychiatric: Normal Affect, Normal Mood Skin Exam: Warm, Dry, Intact, Normal Color, No Rash Course - Vital Signs Text/Narrative:: Modest improvement in breath sounds after neb, minimal change in calf tenderness with Toradol. HR down about 20/min after IV fluids. Last Recorded V/S: Last Vital Signs Temp 35.7 C 05/25/17 22:09 Pulse 114 H 05/25/17 22:29 Resp 24 H 05/25/17 21:52 BP 130/93 H 05/25/17 22:29 Pulse Ox 97 05/25/17 22:29 - Orders/Labs/Meds Orders: Active Orders 24 hr Category Date Time Status RT Aerosol Therapy [RC] ASDIRECTED Care 05/25/17 22:22 Active Chest 2V [CR] Stat Exams 05/25/17 22:22 Taken Labs: Laboratory Tests 05/25/17 05/25/17 05/25/17 Range/Units 22:34 22:34 22:34 WBC 9.7 (4.5-11.0) K/uL RBC 5.60 (4.30-5.90) M/uL Hgb 16.5 H (12.0-15.0) g/dL Hct 46.0 (40.0-54.0) % MCV 82 (80-98) fL MCH 30 (27-31) pg MCHC 36 (32-36) % Plt Count 169 (150-400) K/uL D-Dimer, Quantitative < 100 (0.0-400.0) ng/mL Sodium 135 L (140-148) mmol/L Potassium 3.6 (3.6-5.2) mmol/L Chloride 98 L (100-108) mmol/L Carbon Dioxide 24 (21-32) mmol/L Anion Gap 16.6 H (5.0-14.0) mmol/L BUN 13 (7-18) mg/dL Creatinine 1.0 (0.8-1.3) mg/dL Est Cr Clr Drug Dosing 90.25 mL/min Estimated GFR (MDRD) > 60 (>60) Glucose 293 H (74-106) mg/dL Calcium 9.3 (8.5-10.1) mg/dL Creatine Kinase (39-308) U/L Troponin I (0.000-0.056) ng/mL Urine Color Urine Appearance Urine pH (4.5-8.0) Ur Specific [place] (1.008-1.030) Urine Protein (NEGATIVE) mg/dL Urine Glucose (UA) (NEGATIVE) mg/dL Urine Ketones (NEGATIVE) mg/dL Urine Occult Blood (NEGATIVE) Urine Nitrite (NEGAITVE) Urine Bilirubin (NEGATIVE) Urine Urobilinogen (NORMAL) mg/dL Ur Leukocyte Esterase (NEGATIVE) Urine RBC (0-5) Urine WBC (0-5) Ur Epithelial Cells Amorphous Sediment Urine Bacteria Urine Mucus 05/25/17 05/25/17 05/25/17 Range/Units 22:34 22:34 22:53 WBC (4.5-11.0) K/uL RBC (4.30-5.90) M/uL Hgb (12.0-15.0) g/dL Hct (40.0-54.0) % MCV (80-98) fL MCH (27-31) pg MCHC (32-36) % Plt Count (150-400) K/uL D-Dimer, Quantitative (0.0-400.0) ng/mL Sodium (140-148) mmol/L Potassium (3.6-5.2) mmol/L Chloride (100-108) mmol/L Carbon Dioxide (21-32) mmol/L Anion Gap (5.0-14.0) mmol/L BUN (7-18) mg/dL Creatinine (0.8-1.3) mg/dL Est Cr Clr Drug Dosing mL/min Estimated GFR (MDRD) (>60) Glucose (74-106) mg/dL Calcium (8.5-10.1) mg/dL Creatine Kinase 95 (39-308) U/L Troponin I < 0.017 (0.000-0.056) ng/mL Urine Color [place] Urine Appearance Clear Urine pH 6.0 (4.5-8.0) Ur Specific [place] 1.020 (1.008-1.030) Urine Protein 30 H (NEGATIVE) mg/dL Urine Glucose (UA) >1000 H (NEGATIVE) mg/dL Urine Ketones 15 H (NEGATIVE) mg/dL Urine Occult Blood Negative (NEGATIVE) Urine Nitrite Negative (NEGAITVE) Urine Bilirubin Negative (NEGATIVE) Urine Urobilinogen Normal (NORMAL) mg/dL Ur Leukocyte Esterase Negative (NEGATIVE) Urine RBC 0-5 (0-5) Urine WBC 0-5 (0-5) Ur Epithelial Cells Rare Amorphous Sediment Not seen Urine Bacteria Few Urine Mucus Not seen Meds: Medications Discontinued Medications Generic Name Dose Route Start Last Admin Trade Name Freq PRN Reason Stop Dose Admin Albuterol/Ipratropium 3 ml 05/25/17 22:21 05/25/17 22:34 Duoneb 3.0-0.5 Mg/3 Ml NEB 05/25/17 22:22 3 ml ONETIME ONE Administration Lactated Ringer's 1,000 mls @ 1,000 mls/hr 05/25/17 22:21 05/25/17 22:41 Ringers, Lactated IV 05/25/17 23:20 1,000 mls/hr BOLUS ONE Administration Insulin Aspart 30 unit 05/25/17 23:14 Novolog SUBCUT 05/25/17 23:15 ONETIME ONE Ketorolac Tromethamine 30 mg 05/25/17 22:22 05/25/17 22:35 Toradol IVPUSH 05/25/17 22:23 30 mg ONETIME ONE Administration - Radiology Interpretation Free Text/Narrative:: CXR-negative Departure - Departure Time of Disposition: 23:40 Disposition: Home, Self-Care 01 Condition: Good Clinical Impression: Mild dehydration, Calf tenderness Hyperglycemia due to type 2 diabetes mellitus Qualifiers: Diabetes mellitus retirement insulin use: with retirement use Qualified Code(s): E11.65 - Type 2 diabetes mellitus with hyperglycemia; Z79.4 - terminal carman (current ) use of insulin; Z79.4 - FPC (current) use of insulin; Z79.4 - FPC (current) use of insulin; Z79.4 - FPC (current) use of insulin - Discharge Information Referrals: PCP,None [Primary Care Provider] - Forms: ED Department Discharge - My Orders Last 24 Hours: My Active Orders 05/25/17 22:22 RT Aerosol Therapy [RC] ASDIRECTED Chest 2V [CR] Stat - Assessment/Plan Last 24 Hours: My Active Orders 05/25/17 22:22 RT Aerosol Therapy [RC] ASDIRECTED Chest 2V [CR] Stat
[2017-05-25] MEDS ORDERED: Insulin Aspart 100 Units/ML 3 ML Pen SUBCUT ONE (23:14)
--- NOTE | 2017-05-28 09:33 | CR ---
Heart size within normal limits. Pulmonary vasculature within normal limits. No pneumothorax. No foca l consolidation.
== END 2017-05-25 23:53 | disposition home or self-care (01) ==
LOC: JP.ED 21:33
DX: E86.0 Dehydration (principal); E11.65 Type 2 diabetes mellitus with hyperglycemia; J98.01 Acute bronchospasm; I10 Essential (primary) hypertension; E78.00 Pure hypercholesterolemia, unspecified; J44.9 Chronic obstructive pulmonary disease, unspecified; E11.40 Type 2 diabetes mellitus with diabetic neuropathy, unspecified; F17.210 Nicotine dependence, cigarettes, uncomplicated; Z88.1 Allergy status to other antibiotic agents; Z91.040 Latex allergy status; Z91.048 Other nonmedicinal substance allergy status; Z79.82 Long term (current) use of aspirin; Z79.4 Long term (current) use of insulin; Z79.899 Other long term (current) drug therapy
CPT/HCPCS: 36415; 71046; 80048; 81001; 82550; 84484; 85027; 85379; 94640; 96361; 96374; 99284; A9270; J1885; J7120; J7620

== ENCOUNTER 2017-08-01 12:09 | Emergency (ER) | payer MEDICAID ==
--- NOTE | 2017-08-01 12:51 | EDM.PDOC ---
ED HPI GENERAL MEDICAL PROBLEM - General Chief Complaint: Neurological Problem Stated Complaint: not feeling well Time Seen by Provider: 08/01/17 12:35 Source of Information: Reports: Patient, Old Records, RN History Limitations: Reports: No Limitations - History of Present Illness INITIAL COMMENTS - FREE TEXT/NARRATIVE: 46 yo male here with fatigue and intermittent electrical-like shocks in his head progressive for the past week. Currently experiencing 4-5 of these episodes /hour. Called the clinic for the first time today and was referred to the ER. When he has these spells, that last less than a second each, he stops what he is doing but does not fall or lose consciousness. Has a pHx of poorly controlled AODM. His only recent med change was a slight increase in his metformin dosing. No recent illnesses. BS this morning about 225, which is a bit better than normal for him. Sleeping more, but not wakening refreshed. Has sleep apnea and uses a CPAP machine. Has not missed meds lately. Onset: Gradual Onset Date: 07/25/17 Duration: Week(s): (1), Getting Worse Location: Reports: Head (electrical pains), Generalized (fatigue) - Related Data Allergies Allergy/AdvReac Type Severity Reaction Status Date / Time levofloxacin [From Levaquin] Allergy Itching Verified 05/25/17 21:53 cetirizine AdvReac Intermediate Drowsiness Verified 05/25/17 21:53 latex AdvReac Rash Verified 05/25/17 21:53 tape Allergy Rash Uncoded 05/25/17 21:53 Home Meds: Home Meds Aspirin [Halfprin] 81 mg PO DAILY 11/12/12 [History] Insulin Aspart [Novolog Flexpen] 30 units SQ QID 11/12/12 [History] Simvastatin [Zocor] 20 mg PO BID 11/12/12 [History] Tamsulosin HCl [Flomax] 0.4 mg PO DAILY 11/12/12 [History] Pregabalin [Lyrica] 300 mg PO TID 12/11/12 [History] Albuterol [Proventil Neb Soln] 1 ampule INH Q6H PRN 02/12/13 [History] Fluticasone Propionate [Flonase] 2 spray DAR BID 02/12/13 [History] Fluticasone/Salmeterol [Advair 250-50] 1 puff INH BID 02/12/13 [History] Ipratropium [place] 1 ampule INH Q6H PRN 02/12/13 [History] Montelukast [Singulair] 10 mg PO DAILY 02/12/13 [History] Nitroglycerin [Nitrostat] 0.4 mg SL ASDIRECTED PRN 02/12/13 [History] Tiotropium [Spiriva HandiHaler] 1 puff INH DAILY 02/12/13 [History] Cyclobenzaprine [Flexeril] 20 mg PO BID 07/12/13 [History] Omeprazole [Prilosec] 20 mg PO DAILY 10/25/13 [History] Citalopram [Citalopram HBr] 20 mg PO DAILY #30 tablet 06/27/14 [Rx] Melatonin/Pyridoxine HCl (B6) [Melatonin 10 mg Tablet] 1 each PO BEDTIME PRN # 30 tab.mphase 06/27/14 [Rx] Dulaglutide [Trulicity] 1 dose SQ WEEKLY 10/31/15 [History] Insulin Glargine,Hum.Rec.Anlog [Toujeo Solostar] 135 units SQ BEDTIME 10/31/15 [ History] LORazepam 1 mg PO TID 12/21/15 [History] Insulin Glargine,Hum.Rec.Anlog [Toujeo Solostar] 50 units SUBCNJ DAILY 04/03/16 [History] valACYclovir HCl [valACYclovir] 1,000 mg PO BID PRN 04/03/16 [History] Ondansetron [Zofran ODT] 4 mg PO Q6H PRN #7 tab.dis 02/28/17 [Rx] metFORMIN [Glucophage] 1,000 mg PO BIDMEALS 05/25/17 [History] Past Medical History HEENT History: Reports: Allergic Rhinitis, Impaired Vision, Other (See Below) Other HEENT History: states unsteady on feet Cardiovascular History: Reports: Arrhythmia, CAD, High Cholesterol, Hypertension , SOB on Exertion Respiratory History: Reports: Asthma, COPD, Pneumonia, Recurrent, SOB Gastrointestinal History: Reports: Colon Polyp, GERD Genitourinary History: Reports: Prostate Disorder Musculoskeletal History: Reports: Back Pain, Chronic Other Musculoskeletal History: back surgery Neurological History: Reports: Neuropathy, Diabetic Psychiatric History: Reports: Anxiety Endocrine/Metabolic History: Reports: Diabetes, Type II, IDDM Oncologic (Cancer) History: Reports: Lung, Other (See Below) Other Oncologic History: mesophileoma - Infectious Disease History Infectious Disease History: Reports: Chicken Pox - Past Surgical History Cardiovascular Surgical History: Reports: Other (See Below) GI Surgical History: Reports: Colonoscopy, Hernia Repair/Other Social & Family History - Caffeine Use Caffeine Use: Reports: Coffee - Recreational Drug Use Recreational Drug Use: No - Living Situation & Occupation Living situation: Reports: , with Family ED ROS GENERAL - Review of Systems Review Of Systems: See Below Constitutional: Reports: Malaise, Fatigue. Denies: Fever, Chills HEENT: Reports: Other (electrical shocks intermittently to the "brain", not in either side of his face. ) Respiratory: Reports: No Symptoms Cardiovascular: Reports: No Symptoms Endocrine: Reports: No Symptoms GI/Abdominal: Reports: No Symptoms : Reports: No Symptoms Musculoskeletal: Reports: No Symptoms Skin: Reports: No Symptoms Neurological: Reports: Other ("electric-like" shocks in his brain.) Psychiatric: Reports: No Symptoms ED EXAM, NEURO - Physical Exam Exam: See Below Exam Limited By: No Limitations General Appearance: Alert, WD/WN, No Apparent Distress Eye Exam: Bilateral Eye: EOMI, Normal Inspection, PERRL Ears: Normal External Exam, Normal Canal, Hearing Grossly Normal, Normal TMs Nose: Normal Inspection, Normal Mucosa, No Blood Throat/Mouth: Normal Inspection, Normal Lips, Normal Oropharynx, Normal Voice, No Airway Compromise Head Exam: Atraumatic, Normocephalic Neck: Normal Inspection, Supple, Non-Tender Respiratory/Chest: No Respiratory Distress, Lungs Clear, Normal Breath Sounds, No Accessory Muscle Use Cardiovascular: Regular Rate, Rhythm, No Edema GI/Abdominal: Soft, Non-Tender Neurological: Alert, Normal Mood/Affect, CN II-XII Intact, No Motor/Sensory Deficits, Oriented x 3 Back Exam: Normal Inspection. No: CVA Tenderness (R), CVA Tenderness (L) Extremities: Normal Inspection, Normal Range of Motion, Non-Tender, No Pedal Edema Psychiatric: Normal Affect, Normal Mood Skin Exam: Warm, Dry, Intact, Normal Color, No Rash Course - Vital Signs Last Recorded V/S: Last Vital Signs Temp 35.7 C 08/01/17 12:23 Pulse 79 08/01/17 12:23 Resp 18 08/01/17 12:23 BP 156/103 H 08/01/17 12:23 Pulse Ox 99 08/01/17 12:23 Orthostatic Blood Pressure [ 145/118 Standing] Orthostatic Blood Pressure [ 145/109 Sitting] Orthostatic Blood Pressure [ 133/88 Supine] - Orders/Labs/Meds Orders: Active Orders 24 hr Category Date Time Status Orthostatic Vital Signs [RC] ASDIRECTED Care 08/01/17 12:43 Active Head wo Cont [CT] Stat Exams 08/01/17 13:23 Taken UA W/MICROSCOPIC [URIN] Stat Lab 08/01/17 13:01 Ordered Labs: Laboratory Tests 08/01/17 08/01/17 08/01/17 Range/Units 12:54 12:54 13:01 WBC 7.3 (4.5-11.0) K/uL RBC 5.32 (4.30-5.90) M/uL Hgb 15.8 H (12.0-15.0) g/dL Hct 45.5 (40.0-54.0) % MCV 86 (80-98) fL MCH 30 (27-31) pg MCHC 35 (32-36) % Plt Count 163 (150-400) K/uL Sodium 136 L (140-148) mmol/L Potassium 3.7 (3.6-5.2) mmol/L Chloride 100 (100-108) mmol/L Carbon Dioxide 27 (21-32) mmol/L Anion Gap 12.7 (5.0-14.0) mmol/L BUN 13 (7-18) mg/dL Creatinine 0.9 (0.8-1.3) mg/dL Est Cr Clr Drug Dosing TNP Estimated GFR (MDRD) > 60 (>60) Glucose 197 H (74-106) mg/dL Calcium 8.4 L (8.5-10.1) mg/dL Urine Color Yellow Urine Appearance Clear Urine pH 6.0 (4.5-8.0) Ur Specific [place] 1.015 (1.008-1.030) Urine Protein Trace (NEGATIVE) mg/dL Urine Glucose (UA) 100 H (NEGATIVE) mg/dL Urine Ketones Negative (NEGATIVE) mg/dL Urine Occult Blood Negative (NEGATIVE) Urine Nitrite Negative (NEGAITVE) Urine Bilirubin Negative (NEGATIVE) Urine Urobilinogen Normal (NORMAL) mg/dL Ur Leukocyte Esterase Negative (NEGATIVE) Urine RBC Not seen (0-5) Urine WBC Not seen (0-5) Ur Epithelial Cells Not seen Amorphous Sediment Rare Urine Bacteria Not seen Urine Mucus Not seen - Radiology Interpretation Free Text/Narrative:: Head CT negative CT Results Date: 08/01/17 CT Results Time: 14:05 Departure - Departure Time of Disposition: 14:14 Disposition: Home, Self-Care 01 Condition: Good Clinical Impression: Electrical shock sensation - Discharge Information Referrals: PCP,None [Primary Care Provider] - Forms: ED Department Discharge - My Orders Last 24 Hours: My Active Orders 08/01/17 12:43 Orthostatic Vital Signs [RC] ASDIRECTED 08/01/17 13:01 UA W/MICROSCOPIC [URIN] Stat 08/01/17 13:23 Head wo Cont [CT] Stat - Assessment/Plan Last 24 Hours: My Active Orders 08/01/17 12:43 Orthostatic Vital Signs [RC] ASDIRECTED 08/01/17 13:01 UA W/MICROSCOPIC [URIN] Stat 08/01/17 13:23 Head wo Cont [CT] Stat
[2017-08-01 13:23] VITALS: BP 156/103
--- NOTE | 2017-08-01 14:16 | CT ---
Head wo Cont HISTORY: Electric shocking sensation in head for a week. COMPARISON: None TECHNIQUE: Noncontrast enhanced axial cuts were obtained of the brain. FINDINGS:There is no cerebral or subdural hemorrhage. There is no mass effect or edema. The ventricle s and CSF spaces are appropriate for age. No space occupying lesions are demonstrated. The orbital st ructures are unremarkable. The sinuses demonstrate normal aeration. IMPRESSION: Negative exam.
== END 2017-08-01 14:30 | disposition home or self-care (01) ==
LOC: JP.ED 12:09
DX: R20.9 Unspecified disturbances of skin sensation (principal); E11.40 Type 2 diabetes mellitus with diabetic neuropathy, unspecified; E78.00 Pure hypercholesterolemia, unspecified; I10 Essential (primary) hypertension; Z88.1 Allergy status to other antibiotic agents; Z88.8 Allergy status to other drugs, medicaments and biological substances; Z91.040 Latex allergy status; Z91.09 Other allergy status, other than to drugs and biological substances; Z79.82 Long term (current) use of aspirin; Z79.4 Long term (current) use of insulin
CPT/HCPCS: 36415; 70450; 70450-26; 80048; 81001; 85027; 99284-25